=== PATIENT | female | born 1990 | race Hispanic/Latino ===

== ENCOUNTER 2017-10-29 04:03 | Emergency (ER) | payer SELFPAY ==
[2017-10-29] MEDS ORDERED: HYDROcodone/Acetaminophen 10/325 mg Tablet ONE (04:31)
== END 2017-10-29 04:38 | disposition home or self-care (01) ==
LOC: ERS 04:03
DX: K04.7 Periapical abscess without sinus (principal)
CPT/HCPCS: 99282

== ENCOUNTER 2025-01-24 01:56 | Emergency (ER) | payer SELFPAY | END 2025-01-24 03:57 | disposition home or self-care (01) | LOC: ERS 01:56 | DX: H66.92 Otitis media, unspecified, left ear (principal) | CPT/HCPCS: 99282 ==